=== PATIENT | female | born 1960 | race Two or more races ===

== ENCOUNTER 2020-06-05 12:15 | Emergency (ER) | payer MEDICAID, OTHER ==
[~2020-06-05] VITALS: Ht 139.7 cm; Wt 54.4 kg
[2020-06-05 17:43] VITALS: BP 145/58
[2020-06-05] MEDS ORDERED: methylPREDNISolone SOD SUCC 125 MG/2 ML VL IM ONE (17:45)
== END 2020-06-05 18:01 | disposition home or self-care (01) ==
LOC: ER 12:15
DX: M54.16 Radiculopathy, lumbar region (principal); G89.29 Other chronic pain
CPT/HCPCS: 72100; 96372; 99283; J2930